=== PATIENT | male | born 2000 ===

== ENCOUNTER 2023-10-28 09:39 | Emergency (ER) | payer OTHER ==
[2023-10-28] MEDS ORDERED: Ketorolac Tromethamine 30 MG (1 mL) VIAL ONE (11:07)
[2023-10-28] MEDS ORDERED: HYDROcodone/Acetaminophen 5/325 mg Tablet ONE (11:07)
[2023-10-28] MEDS ORDERED: Cyclobenzaprine 10 MG TAB ONE (11:07)
== END 2023-10-28 11:22 | disposition home or self-care (01) ==
LOC: ERS 09:39
DX: S40.212A Abrasion of left shoulder, initial encounter (principal); M43.6 Torticollis; V89.2XXA Person injured in unspecified motor-vehicle accident, traffic, initial encounter
CPT/HCPCS: 96372; 99283; J1885